=== PATIENT | male | born 1940 | race Caucasian/White ===

== ENCOUNTER 2017-11-22 08:13 | Inpatient (IN) | payer MEDICARE ==
[~2017-11-22] VITALS: Ht 175.3 cm; Wt 104.3 kg
[2017-11-22] VITALS (20 sets, daily range): BP systolic 132–179; BP diastolic 65–104
[~2017-11-22 08:13] MED LIST: ASPIRIN EC81 M1 PO; ATORVASTATIN CA80 MG PO; CALCIUM500 M1 PO; CELEBREX 200 M200 M1 PO; EFFIENT10 MG PO; FISH OIL 1,0001 EAC5 PO; GLUCOPHAGE500 MG PO; HYDROCHLOROTHIA25 M1 PO; IMDUR 30 MG TAB30 M1 PO; LISINOPRIL10 MG PO; LOVASTAT40 PO; MULTI VITAMIN1 EACH PO; VERAPAMIL ER240 MG PO
[2017-11-22 08:41] LABS: HEMATOCRIT 42.9 % (42.0-52.0); HEMOGLOBIN 14.8 gm/dL (14.0-18.0); MCH 33.2 pg (26.0-34.0); MCHC 34.4 g/dL (28.0-37.0); MCV 96.4 fL (80.0-100.0); MPV 8.5 fl. (7.2-11.1); RBC 4.45 mil/uL (4.50-6.00); RDW-CV 13.7 % (10.5-14.5); WBC 6.7 thou/uL (4.0-11.0)
[2017-11-22 08:48] LABS: ANION GAP 11 mmol/L (7-16); BUN 16 mg/dL (7-18); CALCIUM 8.9 mg/dL (8.5-10.1); CHLORIDE 104 mmol/L (98-107); CO2 28 mmol/L (21-32); CREATININE 0.9 mg/dL (0.6-1.3); GLUCOSE 129 mg/dL (70-99); POTASSIUM 4.1 mmol/L (3.5-5.1); SODIUM 143 mmol/L (136-145)
[2017-11-22 08:49] LABS: APTT 26.2 Seconds (25.0-31.3); INR 1.1; PROTIME 10.7 Seconds (9.20-11.50)
[2017-11-22 08:53] LABS: ALKALINE PHOSPHATASE 57 U/L (46-116); CHOLESTEROL 137 mg/dL (<200); HDL CHOLESTEROL 45 mg/dL (>40); LDL CHOLESTEROL 69 mg/dL (<100); SGOT 17 U/L (15-37); SGPT 41 U/L (30-65); TOTAL BILIRUBIN 0.9 mg/dL (<0.1-1.0); TRIGLYCERIDE 118 mg/dL (<150); VLDL 24 mg/dL (<40)
[2017-11-22 08:54] LABS: SERUM ASSESSMENT Clear
--- NOTE | 2017-11-22 17:07 | EKG ---
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
--- NOTE | 2017-11-22 17:09 | EKG ---
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
--- NOTE | 2017-11-22 17:21 | H ---
[address] [address] HISTORY AND PHYSICAL Name: BONIPENNIEFILIPPO JESUS Room: [address] IN M.R.#: [id number] Admission: 11/22/17 Attend Phys: Devante Kebede MD, Discharge: Date of : 36 Report #: [id number] THIS REPORT FOR: //name// CC: Osvaldo Kebede DATE OF SERVICE: 11/22/2017 The patient admitted through catheterization lab after coming through same day surgery on 11/22/2017. HISTORY OF PRESENT ILLNESS: The patient is a very pleasant 77-year-old male with a history of coronary artery disease status post prior percutaneous coronary intervention of the right coronary artery in 2012. Recently, he has noted chest discomfort and dyspnea with moderate exertion, the typical of his prior ischemic pain. Episodes are brief in duration and ____ with some cessation of activity. He has underlying hypertension, hypercholesterolemia and type 2 diabetes. MEDICATIONS: Include aspirin, atorvastatin, calcium, Celebrex, hydrochlorothiazide, Imdur, lisinopril, metformin, omeprazole, verapamil, and [place]-3 fatty acids. PAST MEDICAL HISTORY: Remarkable for coronary artery disease, hypertension and hyperlipoproteinemia. PAST SURGICAL HISTORY: Remarkable for prior elbow and foot surgery. FAMILY HISTORY: Remarkable for hypertension and heart disease in his mother and sister. SOCIAL HISTORY: The patient is a former smoker but no longer does. He is . REVIEW OF SYSTEMS: Remarkable for the following positives. He notes some dyspnea on exertion. He has had significant orthopedic problems, particularly affecting one ankle, which required ankle and foot surgery. CARDIOVASCULAR: He has noted recent chest discomfort and dyspnea on exertion. PHYSICAL EXAMINATION: GENERAL: Demonstrates a moderately overweight elderly male who is fit-appearing and in no acute distress. VITAL SIGNS: Blood pressure is 135/85, pulse rate is 68, respirations are 18 per minute. NECK: Jugular venous pressure is normal. Carotids are 1-2+. There is no scleral icterus [place] [address] HISTORY AND PHYSICAL Name: PENNIE PLATA ANN MARIE Room: [address] IN ..#: [id number] Admission: 11/22/17 Attend Phys: Devante Kebede MD, Discharge: Date of : 38 Report #: [id number] CHEST: Clear. CARDIAC: Reveals normal first and second heart sounds with a question of S4 gallop and soft early systolic murmur. ABDOMEN: Modestly obese. EXTREMITIES: Without edema with intact femoral, pedal and radial pulses. IMPRESSION: 1. Unstable angina. 2. Coronary artery disease status post prior stenting of the right coronary artery. 3. Hypertension. 4. Hypercholesterolemia. 5. Type 2 diabetes. 6. 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 7. Gastroesophageal reflux disease. RECOMMENDATIONS: Given the aforementioned clinical scenario, I would recommend cardiac catheterization to define current coronary anatomy and prospects for subsequent therapy. Procedure and risks have been discussed with the patient and family. We will plan to proceed on 11/22/2017, the date of dictation. <ELECTRONICALLY SIGNED> By: Devante Kebede MD, FACC 11/22/17 1721 1216 1246Jotoi Kebede MD, FACC /nt
--- NOTE | 2017-11-22 18:30 | NUR ---
RECEIVED PT FROM MANAGER OF CONSTRUCTION. PT COMPLETED PROCEDURE AT 1200. PT CAME TO FLOOR AROUND 1500. POST CATH VITALS ON FLOOR TAKEN FROM 1500 - 1815. RIGHT GROIN SITE CLEAN, DRY, INTACT, NO HEMATOMA. PT COMPLIANT WITH BED REST. PT CALLED OUT TO AMBULATE PER RN'S REQUEST AT COMPLETION OF BED REST. AT AMBULATION PT REPORTS SOME SORENESS. RIGHT GROIN SITE ASSESSED. NO BLEEDING, NO HEMATOMA. WILL CONTINUE TO MONITOR. IV FLUIDS INFUSING PER ORDERS. ASSESSMENT COMPLETE. PT EDUCATED TO HOLD METFORMIN UNTILL 11/24 AT NOON. PT EDUCATED ON CONTRAST AND METFORMIN. AT BEDSIDE.
--- NOTE | 2017-11-22 22:00 | NUR ---
RECIEVED REPORT AND ASSUMED CARE OF PATIENT AT 1930. ECONOMICS INSTRUCTOR IN PLACE TRACING SR. ASSESSMENT AND VITALS COMPLETED CHARTED, VSS. PATIENT A&OX4. DENIES PAIN, BUT DOES STATE HE HAS TENDERNESS IN RIGHT GROIN WHEN AMBULATING. RIGHT GROIN SITE DRESSING C/D/I, SITE SOFT WITH NO SIGNS OF HEMATOMA. PATIENT DENIES NEEDS AT THIS TIME. GOAL IS TO REST COMFORTABLY WITH NO COMPLICATIONS AT CATH SITE. CALL LIGHT WITHIN REACH.
[2017-11-23] VITALS: BP 136/72
[2017-11-23 04:01] VITALS: BP 134/52
[2017-11-23 04:51] LABS: HEMATOCRIT 38.9 % (42.0-52.0); HEMOGLOBIN 13.2 gm/dL (14.0-18.0); MCH 32.9 pg (26.0-34.0); MCV 96.9 fL (80.0-100.0); MPV 8.8 fl. (7.2-11.1); RBC 4.02 mil/uL (4.50-6.00); RDW-CV 13.4 % (10.5-14.5); WBC 7.4 thou/uL (4.0-11.0)
[2017-11-23 05:13] LABS: CALCIUM 8.6 mg/dL (8.5-10.1); CREATININE 0.9 mg/dL (0.6-1.3); POTASSIUM 4.5 mmol/L (3.5-5.1); TROPONIN-I LEVEL 0.11 ng/mL (<0.06)
--- NOTE | 2017-11-23 06:31 | NUR ---
PATIENT PROGRESSING TOWARDS GOALS: RIGHT GROIN CATH SITE DRESSING REMAINS C/D/I AND NO SIGNS OF HEMATOMA. PATIENT WANTING TO TAKE A SHOWER THIS AM, INFORMED PATIENT THAT HE COULD NOT SHOWER FOR 24 HOURS POST PROCEDURE. PATIENT VERBALIZES UNDERSTANDING. HOURLY ROUNDING OBSERVED. CALL LIGHT WITHIN REACH
--- NOTE | 2017-11-23 10:16 | NUR ---
ASSUMED PT CARE AT 0700 PT IS ALERT AND ORIENTED X 4 PT DENIES PAIN OR SOA PT SHOWS NO SIGNS OF BLEEDING OR EDEMA, PT IS UP AD HUY PT IS NOT A FALL RISK PT IS SR ON THE MONITOR, PT IS READY TO DISCAHRGE HOME PT GIVEN SCRIPTS AND SAMPLES OF MEDICATION, FOLLOW UP APPOINTMENT MADE FOR CARDIOLOGY, WILL CONTINUE TO MONITOR
[2017-11-23 10:32] VITALS: BP 126/68
[2017-11-23] MEDS ORDERED: BRILINTA90 MG PO (10:38)
--- NOTE | 2017-11-23 15:07 | CARD ---
[address] [address] CARDIAC CATH REPORT Name: PENNIE PLATA Room: [address] IN .R.#: [id number] Admission: 11/22/17 Attend Phys: Devante Kebede MD, Discharge: 11/23/17 Date of : 38 Report #: [id number] THIS REPORT FOR: //name// APPROVED REPORT Patient Details Patient Status: Out-Patient Room #: The patient is a 77 year-old male Event Personnel Devante Kebede [employer] Abril Hidalgo RN Blacksmith Apprentice Missy Moscoso RN Monitor Ebenezer Caballero, [facility] Scrub Procedures Performed Left Heart Catheterization, PTCA with Balloon Angioplasty, PTCA with Stenting; left heart catheterization and selective coronary angiography, Left Ventriculogram Indication Unstable angina Risk Factors Arterial Hypertension, Diabetes Previous Procedures/Diagnoses Previous PCI Procedure Narrative The patient was brought electively to the Cardiac Catheterization Laboratory and was prepped and draped in a sterile manner. The right femoral was infiltrated with 1% Lidocaine subcutaneous anesthesia. A 6Fr. [place] sheath was inserted into the Right Femoral Artery. Coronary angiography was performed using coronary diagnostic catheters. The right coronary system was accessed and visualized with a 6Fr. JR4 catheter. The left coronary system was accessed and visualized with a 6Fr. JL4 catheter. The left ventricle was accessed and visualized with a 6Fr. Straight Pigtail catheter. Left ventricular/Aortic Valve gradient assessed via catheter pullback. Pre-demployment femoral angiogram was performed . Closure device was deployed with a 6 Fr Angioseal. There was no hematoma. [place] [address] CARDIAC CATH REPORT Name: PENNIE PLATA Room: [address] IN .R.#: [id number] Admission: 11/22/17 Attend Phys: Devante Kebede MD, Discharge: 11/23/17 Date of : 38 Report #: [id number] Sedation start time: 9:00 Case end Time: Fluoro Time: 42.8 minutes Dose: DAP [id number] cGycm2 6916 mGy Contrast Type and Amount: Visipaque 715ml Diagnostic Cath Left Main 0% narrowing LAD 40% mid LAD narrowing with 50% distal LAD narrowing; there was 80% stenosis of the midportion of a small first diagonal branch Circumflex Prominent though nondominant vessel with 40% mid vessel narrowing and 90% distal narrowing at the bifurcation into a prominent and smaller posterolateral ventricular branches Right Coronary Dominant vessel with 30% mid vessel narrowing and 40% distal narrowing; there widely patent mid right coronary stents Left Ventriculography The left ventricle is normal in size with normal contractility. The left ventricular ejection fraction is estimated to be 60%. Left ventricular wall motion abnormalities are not present. There is no mitral insufficiency. Hemodynamics The aortic pressure is 149/79 mmHg with a mean of 91 mmHg. The left ventricular pressure is 140/8 end-diastolic mmHg with a mean of 8 mmHg. PCI Technique Lesion Anticoagulation was achieved with Angiomax. Percutaneous coronary intervention was performed on the distal circumflex artery segment. The lesion stenosis prior to intervention was 90% with HARRY 3 flow. A 6 Citizen Of [place] XB 3.5 Guide Catheter was used to engage the left ostium. A 014 prowater flex Interventional Guidewire was used to cross the lesion. BALLOON DILATION A Balloon catheter 2.75 x 12 trek was inserted and inflated up to 14atm for 15seconds. STENT DEPLOYMENT A drug-eluting stent 2.5x 14 integrity resolute, 2.5 x 18 integrity resolute was inserted and inflated up to 16atm for 15seconds. POST STENT DEPLOYMENT BALLOON DILATION A Balloon catheter 3.0 x 8 NC trek [place] [address] CARDIAC CATH REPORT Name: PENNIE PLATA Room: [address]#: [id number] Admission: 11/22/17 Attend Phys: Devante Kebede MD, Discharge: 11/23/17 Date of : 38 Report #: [id number] inflated up to 24-30atm for 15seconds. Final angiography reveals 20 % stenosis with HARRY 3 flow. COMMENTS The distal circumflex lesion was heavily calcified requiring significant lesion preparation PCI Technique Lesion 2 Percutaneous Coronary Intervention was performed on the small posterolateral branch of the distal circumflex. The lesion stenosis prior to intervention was 90% with HARRY 3 flow. Balloon Dilation A Balloon catheter 2.0 x 12mm trek was inserted and inflated up to 16atm for 15seconds. Final angiography reveals 50 % stenosis with HARRY 3 flow. Conclusion #1 significant coronary artery disease characterized by the following: A tandem 40 and 50% mid and distal LAD narrowing, B prominent though nondominant circumflex with 40% mid vessel narrowing and 90% distal stenosis involving the bifurcation into a very large posterolateral and small posterolateral branch C dominant right coronary artery with 30% mid vessel narrowing and 40% distal narrowing with widely patent mid right coronary stents #2 normal left ventricular systolic function, estimated ejection fraction being 60%, #3 normal left-sided hemodynamic study #4 successful percutaneous coronary intervention with deployment of sequential drug-eluting stents at the site of 90% distal circumflex stenosis with 20% residual narrowing following stent deployment #5 successful percutaneous coronary angioplasty at the site of 90% stenosis at the takeoff of a modest-sized posterolateral branch of the distal circumflex with 50% [place] [address] CARDIAC CATH REPORT Name: PENNIE PLATA Room: [address] IN M.R.#: [id number] Admission: 11/22/17 Attend Phys: Devante Kebede MD, Discharge: 11/23/17 Date of : 38 Report #: [id number] dilatation and HARRY-3 flow to the distal vessel. Recommendations Aggressive Medical Therapy Medications Administered Aspirin (any) Ticagrelor Diagnostic Cath Approved by: Devante Kebede MD Date/Time: 11/23/17 at 1503 hrs. <ELECTRONICALLY SIGNED> By: Devante Kebede MD, [facility] 11/23/17 1506 1506 1506Devante Kebede MD, [facility] /INF
--- NOTE | 2017-11-23 15:21 | EKG ---
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: : 1940 Requested By: Devante Kebede Order Number: [id number] Reading MD: Esa Gannon Measurements Intervals [place] Rate: 64 P: 24 NE: 132 QRS: -36 QRSD: 81 T: 22 QT: 400 QTc: 413 Interpretive Statements Sinus rhythm Inferior infarct, old Compared to ECG 11/22/2017 13:05:36 No significant changes Electronically Signed On 11-23-2017 15:21:20 EMG TECHNICIAN by Esa Gannon [email or web address] <ELECTRONICALLY SIGNED> By: Esa Gannon MD, [facility] 11/23/17 1521 0822 0822 Esa Gannon MD, [facility] /EPI
--- NOTE | 2017-11-27 10:48 | D ---
[address] [address] DISCHARGE SUMMARY Name: PENNIE PLATA Room: [address] IN M.R.#: [id number] Admission: 11/22/17 Attend Phys: Devante Kebede MD, Discharge: 11/23/17 Date of : 38 Report #: [id number] THIS REPORT FOR: //name// CC: Osvaldo Kebede DATE OF SERVICE: 11/23/2017 The patient is a delightful 77-year-old male with history of coronary artery disease status post remote stenting of the right coronary artery. Recently, he has noted marked dyspnea on exertion and some chest discomfort, typical prior ischemic syndrome. There is underlying hypertension, hyperlipoproteinemia, and mild type 2 diabetes. In this context, I performed cardiac catheterization on 11/22/2017, which revealed 90% stenosis of the prominent distal circumflex involving a bifurcation. There were tandem 30% and 50% mid to distal LAD narrowings with no significant circumflex narrowing noted. Left ventricular function was normal with an estimated ejection fraction of 60%. Given this data, I elected to proceed with percutaneous coronary intervention, deploying 2 drug-eluting stents in the distal circumflex with 20% residual narrowing and dilating a posterolateral branch that emanated from the stented region. The patient did well post-procedurally with no residual chest discomfort following the procedure. Troponin chivo inconsequentially to 0.11. Laboratory on 11/23, revealed sodium 143, potassium 4.5, BUN 12, creatinine 0.9, and glucose 106. Hemoglobin 11.2, white blood cell count 7400 with 153,000 platelets. Cholesterol 137, triglycerides 118, HDL 45, and LDL 69. There was good hemostasis at the right femoral site of catheterization. The patient was discharged to home on the following medications: Aspirin 81 mg daily, atorvastatin 40 mg at bedtime, Celebrex 200 mg as needed, no more than once daily; hydrochlorothiazide 25 mg daily, Imdur 30 mg daily, lisinopril 10 mg at bedtime, metformin 500 mg b.i.d. to be resumed on 11/24, ticagrelor or Brilinta 90 mg b.i.d. with 180 mg loading dose given periprocedurally, verapamil sustained release 240 mg daily. I will plan to see the patient in followup in 3 weeks. He is discharged to home in stable condition on the aforementioned medications. FINAL DISCHARGE DIAGNOSES: 1. Unstable angina. 2. [place] [address] DISCHARGE SUMMARY Name: PENNIE PLATA Room: [address]#: [id number] Admission: 11/22/17 Attend Phys: Devante Kebede MD, Discharge: 11/23/17 Date of : 38 Report #: [id number] 3. Status post stenting of the distal circumflex on 11/22/2017. 4. Hypertension. 5. Hyperlipoproteinemia. 6. Type 2 diabetes mellitus. 7. Degenerative joint disease. 8. Gastroesophageal reflux disease. PROCEDURES: 11/22/2017-left heart catheterization, left ventriculography, selective coronary arteriography, and percutaneous coronary intervention with deployment of two drug-eluting stents in the distal circumflex with angioplasty of a posterolateral branch. <ELECTRONICALLY SIGNED> By: Devante Kebede MD, FACC 11/27/17 1048 0914 0950Jotoi Kebede MD, [facility] /nt
== END 2017-11-23 11:15 | disposition home or self-care (01) | DRG 247 ==
LOC: M.CL 08:13 → M.TBA-CV 12:22 → M.2W 12:22
PROVIDERS: ADMIT Internal Medicine
PROC: 4A023N7 Measurement of Cardiac Sampling and Pressure, Left Heart, Percutaneous Approach (ICD-10-PCS; principal; 2017-11-22)
PROC: B2111ZZ Fluoroscopy of Multiple Coronary Arteries using Low Osmolar Contrast (ICD-10-PCS; principal; 2017-11-22)
PROC: B2151ZZ Fluoroscopy of Left Heart using Low Osmolar Contrast (ICD-10-PCS; principal; 2017-11-22)
PROC: 027035Z Dilation of Coronary Artery, One Artery with Two Drug-eluting Intraluminal Devices, Percutaneous Approach (ICD-10-PCS; principal; 2017-11-22)
DX: I25.110 Atherosclerotic heart disease of native coronary artery with unstable angina pectoris (principal); E11.9 Type 2 diabetes mellitus without complications; I10 Essential (primary) hypertension; E78.5 Hyperlipidemia, unspecified; E66.9 Obesity, unspecified; M19.90 Unspecified osteoarthritis, unspecified site; K21.9 Gastro-esophageal reflux disease without esophagitis; Z87.891 Personal history of nicotine dependence; Z68.33 Body mass index [BMI] 33.0-33.9, adult

== ENCOUNTER 2019-05-08 10:09 | Inpatient (IN) | payer MEDICARE ==
[~2019-05-08] VITALS: Ht 177.8 cm; Wt 96.2 kg
--- NOTE | ~2019-05-08 | H ---
[address] [address] HISTORY AND PHYSICAL Name: PENNIE PLATA Room: [address] IN M.R.#: [id number] Admission: 05/08/19 Attend Phys: Feliciano Lara MD Discharge: 05/10/19 Date of : 38 Report #: [id number] THIS REPORT FOR: //name// Please refer to the History and Physical performed in the physician's office. By: 1214Medical Records Staff LELAND /DONG
[~2019-05-08 10:09] MED LIST changes: +BRILINTA90 MG PO; +VERAPAMIL ER240 M1 PO; -VERAPAMIL ER240 MG PO
[2019-05-08 10:30] VITALS: BP 122/87
[2019-05-08 11:05] LABS: HEMATOCRIT 43.3 % (42.0-52.0); MCH 32.9 pg (26.0-34.0); MCHC 34.6 g/dL (28.0-37.0); MCV 95.1 fL (80.0-100.0); MPV 8.7 fl. (7.2-11.1); RBC 4.55 mil/uL (4.50-6.00); RDW-CV 13.1 % (10.5-14.5); WBC 6.2 thou/uL (4.0-11.0)
[2019-05-08 11:20] LABS: CALCIUM 8.8 mg/dL (8.5-10.1); CREATININE 1.1 mg/dL (0.6-1.3)
[2019-05-08 11:21] LABS: POTASSIUM 2.9 mmol/L (3.5-5.1)
[2019-05-08] MEDS ORDERED: PLAVIX 75 MG TA75 M1 PO (11:23)
[2019-05-08] MEDS ORDERED: ELIQUIS5 MG PO (11:23)
[2019-05-08] MEDS ORDERED: NORVASC5 MG PO (11:31)
[2019-05-08] MEDS ORDERED: COZAAR 25 MG TA25 M2 PO (11:56)
[2019-05-08 15:37] VITALS: BP 130/79
[2019-05-08 20:00] VITALS: BP 152/92
[2019-05-08 23:54] VITALS: BP 118/79
[2019-05-09 04:00] VITALS: BP 105/73
[2019-05-09 08:00] VITALS: BP 145/87
--- NOTE | 2019-05-09 10:39 | EKG ---
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: : 1940 Requested By: Devante Kebede Order Number: [id number] Eliot MD: Feliciano Lara Measurements Intervals [place] Rate: 83 P: RI: QRS: -39 QRSD: 82 T: 33 QT: 516 QTc: 607 Interpretive Statements Atrial fibrillation Inferior infarct, old Prolonged QT interval Compared to ECG 11/23/2017 08:22:42 Prolonged QT interval now present Sinus rhythm no longer present Myocardial infarct finding still present Electronically Signed On 05-09-2019 10:38:53 CDT by Feliciano Lara [email or web address] <ELECTRONICALLY SIGNED> By: Feliciano Lara MD, FACC 05/09/19 1038 0758 0758 Feliciano Lara MD, FAC /EPI
[2019-05-09 12:15] VITALS: BP 132/86
[2019-05-09 16:43] VITALS: BP 128/75
[2019-05-09 20:00] VITALS: BP 96/60
[2019-05-10] VITALS (18 sets, daily range): BP systolic 108–160; BP diastolic 69–98
[2019-05-10 05:28] LABS: CALCIUM 8.8 mg/dL (8.5-10.1); CREATININE 0.9 mg/dL (0.6-1.3); POTASSIUM 3.3 mmol/L (3.5-5.1)
--- NOTE | 2019-05-10 16:13 | 2DMMODE ---
[place] [address] 2 D/M-MODE ECHOCARDIOGRAM Name: BONIPENNIE ANN MARIE Room: [address] IN [facility]#: [id number] Admission: 05/08/19 Attend Phys: Feliciano Lara, Discharge: Date of : 36 Date of Service: 05/10/19 1613 Report #: [id number] THIS REPORT FOR: //name// APPROVED REPORT Study performed: 05/10/2019 09:50:05 EXAM: Comprehensive 2D, Doppler, and color-flow Echocardiogram Patient Location: In-Patient Room #: 200 Status: routine BSA: 2.13 HR: 100 bpm BP: 117/72 mmHg Rhythm: Atrial Fibrillation Other Information Study Quality: Good Indications Atrial Fibrillation 2D Dimensions IVSd: 13.68 (7-11mm) LVOT Diam: 20.74 (18-24mm) LVDd: 48.54 mm PWd: 14.07 (7-11mm) Ascending Ao: 32.87 (22-36mm) LVDs: 31.38 (25-40mm) Aortic Root: 36.76 mm Volumes Left Atrial Volume (Systole) LA ESV Index: 37.90 mL/m2 Aortic Valve AoV Peak Lyle.: 1.08 m/s AO Peak Gr.: 4.69 mmHg LVOT Max P.32 mmHg AO Mean Gr.: 2.12 mmHg LVOT Mean P.81 mmHg LVOT Max V: 1.04 m/s AO V2 VTI: 18.33 cm LVOT Mean V: 0.60 m/s MERLIN (VTI): 3.35 cm2 LVOT V1 VTI: 18.20 cm Mitral Valve MV Decel. Time: 172.58 ms MV PHT: 50.05 ms MVA (PHT): 4.40 cm2 [place] [address] 2 D/M-MODE ECHOCARDIOGRAM Name: PENNIE PLATA Room: [address] IN ..#: [id number] Admission: 05/08/19 Attend Phys: Feliciano Lara, Discharge: Date of : 36 Date of Service: 05/10/19 1613 Report #: [id number] TDI Lateral E' Lyle.: 0.11 m/s Pulmonary Valve PV Peak Lyle.: 0.93 m/s PV Peak Gr.: 3.43 mmHg Tricuspid Valve RAP Estimate: 5.00 mmHg TR Peak Gr.: 26.96 mmHg RVSP: 31.00 mmHg PA Pressure: 31.00 mmHg Left Ventricle The left ventricle is normal size. There is normal LV segmental wall motion. Mild concentric left ventricular hypertrophy. Left ventricular systolic function is normal. The left ventricular ejection fraction is within the normal range. LVEF is 55-60%. This study is not technically sufficient to allow evaluation of the LV diastolic function due to atrial fibrillation. Right Ventricle The right ventricle is normal size. The right ventricular systolic function is normal. Atria Left atrium is mildly dilated. The right atrium size is normal. Aortic Valve Mild aortic valve sclerosis. No aortic regurgitation is present. There is no aortic valvular stenosis. Mitral Valve The mitral valve is normal in structure. Mild mitral regurgitation. No evidence of mitral valve stenosis. Tricuspid Valve The tricuspid valve is normal in structure. Mild tricuspid regurgitation. Mild pulmonary hypertension. Pulmonic Valve The pulmonary valve is normal in structure. Trace pulmonic regurgitation. Great Vessels The aortic root is normal in size. IVC is [place] [address] 2 D/M-MODE ECHOCARDIOGRAM Name: BONIPENNIE Room: [address] IN [facility]#: [id number] Admission: 05/08/19 Attend Phys: Feliciano Lara, Discharge: Date of : 36 Date of Service: 05/10/19 1613 Report #: [id number] collapses >50% with inspiration. Pericardium There is no pericardial effusion. <Conclusion> The left ventricle is normal size. Mild concentric left ventricular hypertrophy. Left ventricular systolic function is normal. The left ventricular ejection fraction is within the normal range. LVEF is 55-60%. This study is not technically sufficient to allow evaluation of the LV diastolic function due to atrial fibrillation. The right ventricle is normal size. Left atrium is mildly dilated. Mild aortic valve sclerosis. No aortic regurgitation is present. There is no aortic valvular stenosis. The mitral valve is normal in structure. Mild mitral regurgitation. The tricuspid valve is normal in structure. Mild tricuspid regurgitation. Mild pulmonary hypertension. IVC is normal in size and collapses >50% with inspiration. There is no pericardial effusion. There is normal LV segmental wall motion. <ELECTRONICALLY SIGNED> By: Devante Kebede MD, FACC 05/10/19 1613 1613 161 Devante Kebede MD, FACC /INF
[2019-05-10] MEDS ORDERED: FLECAINIDE ACET50 M1 PO (18:37)
--- NOTE | 2019-05-11 09:13 | EKG ---
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: [facility] : 1940 Requested By: Devante Kebede Order Number: [id number] Elito MD: Feliciano Lara Measurements Intervals [place] Rate: 84 P: NE: QRS: -38 QRSD: 88 T: 55 QT: 389 QTc: 460 Interpretive Statements Atrial fibrillation Abnormal R-wave progression, late transition Inferior infarct, old Baseline wander in lead(s) V2 Compared to ECG 05/09/2019 07:58:38 Prolonged QT interval no longer present Myocardial infarct finding still present Electronically Signed On 05-11-2019 9:13:36 CDT by Feliciano Lara [email or web address] <ELECTRONICALLY SIGNED> By: Feliciano Lara MD, FAC 05/11/1913 5 5 Feliciano Lara MD, FAC /EPI
--- NOTE | 2019-05-12 09:52 | D ---
[address] [address] DISCHARGE SUMMARY Name: PENNIE PLATA Room: [address] IN M.R.#: [id number] Admission: 05/08/19 Attend Phys: Feliciano Lara MD Discharge: 05/10/19 Date of : 36 Report #: [id number] THIS REPORT FOR: //name// CC: Osvaldo Lara DATE OF SERVICE: 05/10/2019 FINAL DISCHARGE DIAGNOSES: 1. Persistent atrial fibrillation. 2. Coronary artery disease. 3. Hypertension. 4. Hyperlipidemia. 5. Type 2 diabetes. PROCEDURES: 05/10/2019 -- DC cardioversion with rhythm reverting from atrial fibrillation to sinus. The patient is a very pleasant 79-year-old male with a history of coronary artery disease with prior myocardial infarction and prior stenting on multiple occasions. There is underlying hypertension, hyperlipidemia and type 2 diabetes. Recently, he demonstrated atrial fibrillation with a rapid response and was placed on rate controlling agents and Eliquis. After several weeks of same, he continued to demonstrate atrial fibrillation. He was brought into the hospital for flecainide loading. He received 50 to 100 mg with 100 mg given in the morning prior to cardioversion which was undertaken on 05/10/2019 with 300 watt seconds administered x 1 with the rhythm reverting from atrial fibrillation to sinus mechanism. He remained in sinus rhythm and was stable through the remainder of the day. He was discharged to home on the evening of 05/10/2019 on the following medications: Flecainide 75 mg b.i.d., Eliquis 5 mg b.i.d., losartan 50 mg daily, Imdur 30 mg daily, hydrochlorothiazide 25 mg daily, Plavix 75 mg daily, atorvastatin 40 mg daily and Norvasc 5 mg daily. I will plan to see him in followup in approximately 3 weeks. He is discharged to home in stable condition on the aforementioned medications with followup as iterated above. <ELECTRONICALLY SIGNED> By: Devante Kebede MD, [facility] 05/12/19 0952 1732 1936Jotoi Kebede MD, FAC /nt
--- NOTE | 2019-05-12 09:53 | CARD ---
[address] [address] CARDIAC CATH REPORT Name: BONIPENNIEFILIPPO JESUS Room: [address] M.R.#: [id number] Admission: 05/08/19 Attend Phys: Feliciano Lara MD Discharge: 05/10/19 Date of : 38 Report #: [id number] THIS REPORT FOR: //name// CC: Osvaldo Lara DATE OF SERVICE: 05/10/2019 PROCEDURE: DC cardioversion. TECHNIQUE: The patient was brought to the catheterization area and was noted to be in atrial fibrillation with a moderate response. He received a prior antiarrhythmic therapy with flecainide 100 mg and was continued on Eliquis with the morning dose given. He was sedated with 3 mg of Versed and 75 mcg of fentanyl. With the patient having achieved satisfactory level of sedation, we proceeded with DC cardioversion. We administered 300 joules with patches located in the AP locations x 1 with rhythm reverting from atrial fibrillation to a sinus rhythm at a normal rate. The patient was hemodynamically and rhythmically stable. He gradually awakened from his state of conscious sedation and returned to normal neurologic function. He was then transferred in stable condition to the telemetry area from where he initially came. IMPRESSION: Successful DC cardioversion with rhythm reverting from atrial fibrillation to sinus at a normal rate with 300 joules administered x 1. <ELECTRONICALLY SIGNED> By: Devante Kebede MD, [facility] 05/12/19 0953 1207 [id number] Kebede MD, [facility] /nt
== END 2019-05-10 19:29 | disposition home or self-care (01) | DRG 309 ==
LOC: M.2W 10:09
PROVIDERS: Internal Medicine; ADMIT Internal Medicine Cardiovascular Disease
PROC: 5A2204Z Restoration of Cardiac Rhythm, Single (ICD-10-PCS; principal; 2019-05-10)
DX: I48.1 Persistent atrial fibrillation (principal); D68.69 Other thrombophilia; I25.10 Atherosclerotic heart disease of native coronary artery without angina pectoris; I10 Essential (primary) hypertension; E78.5 Hyperlipidemia, unspecified; E11.9 Type 2 diabetes mellitus without complications; E78.2 Mixed hyperlipidemia; E87.6 Hypokalemia; Z87.891 Personal history of nicotine dependence; Z88.8 Allergy status to other drugs, medicaments and biological substances; Z79.899 Other long term (current) drug therapy; Z95.5 Presence of coronary angioplasty implant and graft; I25.2 Old myocardial infarction

== ENCOUNTER 2020-11-04 10:41 | Observation (INO) | payer MEDICARE ==
[~2020-11-04] VITALS: Ht 177.8 cm; Wt 99.8 kg
[2020-11-04] VITALS (16 sets, daily range): BP systolic 133–168; BP diastolic 82–98
--- NOTE | ~2020-11-04 | H ---
[address] [address] HISTORY AND PHYSICAL Name: PENNIE PLATA ANN MARIE Room: [address] Reynaldo Aragon#: [id number] Admission: 11/04/20 Attend Phys: Devante Kebede MD, Discharge: 11/05/20 Date of : 38 Report #: [id number] THIS REPORT FOR: cc: Vini Renteria Jayme DO ~ [facility],Medical Records Staff Please refer to the History and Physical performed in the physician's office. By: [id number] Records Staff [facility] /DONG
[~2020-11-04 10:41] MED LIST changes: +COZAAR 25 MG TA25 M2 PO; +ELIQUIS5 MG PO; +FLECAINIDE ACET50 M1 PO; +NORVASC5 MG PO; +PLAVIX 75 MG TA75 M1 PO; +TAMBOCOR 100 M100 M1 PO
[2020-11-04 11:22] LABS: HEMATOCRIT 41.3 % (42.0-52.0); HEMOGLOBIN 14.2 gm/dL (14.0-18.0); MCH 32.9 pg (26.0-34.0); MCHC 34.3 g/dL (28.0-37.0); MCV 95.9 fL (80.0-100.0); MPV 7.7 fl. (7.2-11.1); RBC 4.3 mil/uL (4.50-6.00); RDW-CV 12.6 % (10.5-14.5); WBC 6.7 thou/uL (4.0-11.0)
[2020-11-04 11:32] LABS: ANION GAP 11 mmol/L (7-16); BUN 14 mg/dL (7-18); CALCIUM 9.2 mg/dL (8.5-10.1); CHLORIDE 97 mmol/L (98-107); CO2 26 mmol/L (21-32); CREATININE 0.8 mg/dL (0.6-1.3); GLUCOSE 114 mg/dL (70-99); POTASSIUM 3.3 mmol/L (3.5-5.1); SODIUM 134 mmol/L (136-145)
[2020-11-04 11:34] LABS: APTT 25.4 Seconds (25.0-31.3); PROTIME 10.8 Seconds (9.20-11.50)
[2020-11-04 11:37] LABS: ALBUMIN 3.7 g/dL (3.4-5.0); ALKALINE PHOSPHATASE 47 U/L (46-116); CHOLESTEROL 115 mg/dL (<200); HDL CHOLESTEROL 38 mg/dL (>40); LDL CHOLESTEROL 61 mg/dL (<100); SGOT 16 U/L (15-37); SGPT 33 U/L (30-65); TOTAL BILIRUBIN 0.7 mg/dL (<0.1-1.0); TOTAL PROTEIN 6.3 g/dL (6.4-8.2); TRIGLYCERIDE 83 mg/dL (<150); VLDL 17 mg/dL (<40)
[2020-11-04 11:38] LABS: SERUM ASSESSMENT Clear
[2020-11-04] MEDS ORDERED: ISOSORBIDE MONO30 M1 PO (11:54)
--- NOTE | 2020-11-04 16:00 | NUR ---
PT ARRIVED TO ROOM 231 VIA BED ACCOMPANIED BY . PT INSTRUCTED ON BED REST UNTIL 2100. CATH SITE CHECKED WITH BUSINESS CONTINUITY PLANNING DIRECTOR STAFF-NO BLEEDING OR HEMATOMA. NSR
--- NOTE | 2020-11-04 17:11 | NUR ---
PT TO UNIT THIS EVENING AFTER HEART CATH. PT COMPLIANT WITH BED REST ORDERS. AT BS. NSR ON MONITOR. IVF INFUSING
--- NOTE | 2020-11-04 17:14 | EKG ---
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1940 Requested By: Devante Kebede Order Number: [id number] Eliot MD: Devante Kebede Measurements Intervals [place] Rate: 73 P: 55 NE: 202 QRS: -36 QRSD: 86 T: 0 QT: 398 QTc: 439 Interpretive Statements Sinus rhythm Inferior infarct, old Compared to ECG 05/10/2019 06:06:31 Atrial fibrillation no longer present Myocardial infarct finding still present Electronically Signed On 11-04-2020 17:14:37 DITCH INSPECTOR by Devante Kebede [email or web address] <ELECTRONICALLY SIGNED> By: Devante Kebede MD, [facility] 11/04/20 1714 1150 1150 Devante Kebede MD, [facility] /EPI
--- NOTE | 2020-11-04 18:37 | EKG ---
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1940 Requested By: Devante Kebede Order Number: [id number] Reading MD: Devante Kebede Measurements Intervals [place] Rate: 78 P: 13 MS: 202 QRS: -48 QRSD: 90 T: -4 QT: 386 QTc: 440 Interpretive Statements Sinus rhythm Abnormal R-wave progression, late transition Inferior infarct, old Compared to ECG 11/04/2020 11:50:05 No significant changes Electronically Signed On 11-04-2020 18:37:45 CHAIN MENDER by Devante Kebede [email or web address] <ELECTRONICALLY SIGNED> By: Devante Kebede MD, [facility] 11/04/20 1837 1526 1526 Devante Kebede MD, [facility] /EPI
[2020-11-05 02:02] VITALS: BP 137/77
[2020-11-05 04:28] LABS: HEMATOCRIT 38.3 % (42.0-52.0); HEMOGLOBIN 13.2 gm/dL (14.0-18.0); MCH 33.1 pg (26.0-34.0); MCHC 34.6 g/dL (28.0-37.0); MCV 95.5 fL (80.0-100.0); MPV 7.5 fl. (7.2-11.1); RBC 4.01 mil/uL (4.50-6.00); RDW-CV 12.7 % (10.5-14.5); WBC 7.4 thou/uL (4.0-11.0)
[2020-11-05 05:34] VITALS: BP 140/86
[2020-11-05 05:37] LABS: ALBUMIN 3.3 g/dL (3.4-5.0); CALCIUM 8.9 mg/dL (8.5-10.1); CREATININE 0.7 mg/dL (0.6-1.3); POTASSIUM 3.4 mmol/L (3.5-5.1); TOTAL BILIRUBIN 0.7 mg/dL (<0.1-1.0); TOTAL PROTEIN 5.9 g/dL (6.4-8.2); TROPONIN-I LEVEL 0.48 ng/mL (<0.06)
[2020-11-05 08:00] VITALS: BP 1628/86
[2020-11-05 11:16] VITALS: BP 164/94
[2020-11-05 12:11] VITALS: BP 140/83
[2020-11-05 13:02] VITALS: BP 140/83
--- NOTE | 2020-11-05 14:05 | NUR ---
I ASSUMED CARE OF THE PATIENT AT 0700. HE IS ALERT AND ORIENTED X4 AND IS UP AD HUY. BED IS IN THE LOW LOCKED POSITION AND CALL LIGHT IS IN REACH. HOURLY ROUNDING IS COMPLETED AND PATIENT NEEDS ARE MET. PAIN IS DENIED. IS AT THE BEDSIDE READY TO DRIVE PATIENT HOME. HE IS FROM [place]. R GROIN SITE IS C/D/I AND WITH A BANDAID. DISCHARGE IS EXPLAINED AND FOLLOW UP APPOINTMENTS ARE UNDERSTOOD. WILL CONTINUE TO MONITOR.
--- NOTE | 2020-11-06 14:05 | EKG ---
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: : 1940 Requested By: Devante Kebede Order Number: [id number] Reading MD: Devante Kebede Measurements Intervals [place] Rate: 75 P: 47 NE: 181 QRS: -37 QRSD: 89 T: 35 QT: 390 QTc: 436 Interpretive Statements Sinus rhythm Inferior infarct, old Compared to ECG 11/04/2020 15:26:00 No significant changes Electronically Signed On 11-06-2020 14:05:49 CUTTER WOODWIND [employer]S by Devante Kebede [email or web address] <ELECTRONICALLY SIGNED> By: Devante Kebede MD, [facility] 11/06/20 1405 0833 0833 Devante Kebede MD, [facility] /EPI
--- NOTE | 2020-11-06 14:42 | CARD ---
[address] [address] CARDIAC CATH REPORT Name: PENNIE PLATA Room: [address] Reynaldo M.RJose#: [id number] Admission: 11/04/20 Attend Phys: Devante Kebede MD, Discharge: 11/05/20 Date of : 38 Report #: [id number] THIS REPORT FOR: cc: Vini Renteria Jayme DO ~ Devante Kebede MD [facility] APPROVED REPORT Study performed: 11/04/2020 12:10:10 Patient Details Patient Status: Out-Patient Room #: The patient is a 80 year-old male Event Personnel Devante Kebede Building Illuminating Engineer, Zoë Guerrero RN Oil Change Technician, Ebenezer Caballero Scrisauro, Amy Dow RTR Monitor Procedures Performed Art Access - R femoral artery, Left Heart Cath w/or w/o Coronaries LHC, YULIANA w/Atherectomy Single CIRC DESATH , Hemostasis w/ Angioseal Indication Unstable angina Risk Factors Obesity, Hypercholesterolemia, Hypertension, Diabetes Previous Procedures/Diagnoses Previous PCI Admission/Lab Medications/Medications given during procedure Angiomax IV 15 ml, Angiomax Drip IV 35 ml per hr, Angiomax IV 3 ml, Plavix PO 600 mg, Aspirin PO 162 mg Procedure Narrative The patient was brought electively to the Cardiac Catheterization Laboratory and was prepped and draped in a sterile manner. The right femoral was infiltrated with 2% Lidocaine subcutaneous anesthesia. A 6F Eckerman sheath was inserted into the right femoral artery. Coronary angiography was performed using coronary diagnostic catheters. The right coronary system was accessed [place] [address] CARDIAC CATH REPORT Name: PENNIE PLATA ANN MARIE Room: [address] Margo#: [id number] Admission: 11/04/20 Attend Phys: Devante Kebede MD, Discharge: 11/05/20 Date of : 38 Report #: [id number] a 6F JR4 catheter. The left coronary system was accessed and visualized with a 6F JL4 catheter. The left ventricle was accessed and visualized with a 6F Pigtail catheter. Left ventricular/Aortic Valve gradient assessed via catheter pullback. Left ventriculogram was performed in JAQUEZ projection. Pre-demployment femoral angiogram was performed . Closure device was deployed with a 6 Fr Angioseal STS. The patient tolerated the procedure well and there were no complications associated with the procedure. There was no hematoma. Intraoperative Conscious Sedation Sedation start time: 13:05 Case end Time: 14:59 Fentanyl 75 mcg Versed 3 mg Fluoro Time: 32.3 minutes Dose: DAP [id number] cGycm2 3580 mGy Contrast Type and Amount: Visipaque 530 ml Diagnostic Cath Left Main 0% narrowing LAD 30% mid with 50% distal narrowing Circumflex 40% mid vessel narrowing with 80% heavily calcified distal stenosis Right Coronary 30% mid vessel narrowing Left Ventriculography The left ventricle is normal in size with normal contractility. The left ventricular ejection fraction is estimated to be 65%. Left ventricular wall motion abnormalities are not present. There is no mitral insufficiency. Hemodynamics The aortic pressure is 137/75 mmHg with a mean of 118 mmHg. The left ventricular pressure is 137/1 mmHg with a mean of mmHg. The left ventricular end diastolic pressure is 6 mmHg. There was no gradient across the aortic valve upon pullback. PCI Technique Lesion Anticoagulation was achieved with Angiomax. Patient was preloaded with Angiomax IV 15 ml. Percutaneous coronary intervention was performed on the distal circumflex artery segment. The lesion stenosis prior to intervention was 80% with HARRY 3 flow. A 6FR LAUNCHER EBU 4.0 Guide Catheter was used to engage the lm ostium. A BMW 190cm Interventional Guidewire [place] [address] CARDIAC CATH REPORT Name: PENNIE PLATA Room: [address]#: [id number] Admission: 11/04/20 Attend Phys: Devante Kebede MD, Discharge: 11/05/20 Date of : 38 Report #: [id number] lesion. BALLOON DILATION A Balloon catheter NC Trek RX 2.75 X 8 was inserted and inflated up to 18.00atm for 14seconds. Additional Inflation: 18.00atm for 23seconds. Additional Inflation: 20.00atm for 19seconds. An AngioSculpt PTCA 2.5 x 10 scoring balloon catheter was inserted and inflated up to 16 tani for 25 seconds; 18 tani for 17 seconds; 20 tani for 15 seconds. A balloon catheter NC Trek RX 3.0 x 8 was inserted and inflated up to 17 tani for 18 seconds; 17 tani for 12 seconds. STENT DEPLOYMENT A drug-eluting stent Bert RX Stent 3.0X8mm was inserted and inflated up to 14.00atm for 11seconds. Additional Inflation: 16.00atm for 9seconds. The same balloon catheter NC Trek RX 3.0 x 8 was re-inserted and inflated up to 16 tani for 9 seconds. A 2nd drug eluting stent Bert RX Stent 2.75x8mm was inserted and inflated up to 14 tani for 11 seconds; 18 tani for 14 seconds. Final angiography reveals 25 % stenosis with HARRY 3 flow. Conclusion 1. Significant multivessel coronary artery characterized by the following: A 30% mid and 50% distal LAD narrowing B 40% mid and 80% heavily calcified distal circumflex stenosis C modest size dominant right coronary artery with 30% mid vessel narrowing 2. Normal left ventricular systolic function, estimated ejection fraction being 65% 3. Normal left-sided hemodynamic study 4. Successful PCI with deployment of sequential drug-eluting stents at the site of 80% heavily calcified distal circumflex stenosis with 25% residual narrowing and HARRY-3 flow to the distal vessel Recommendations Cardiac [place] [address] CARDIAC CATH REPORT Name: PENNIE PLATA Room: [address] Reynaldo Aragon#: [id number] Admission: 11/04/20 Attend Phys: Devante Kebede MD, Discharge: 11/05/20 Date of : 38 Report #: [id number] Aggressive Medical Therapy Medications Administered Aspirin (any) Clopidogrel Diagnostic Cath Approved by: Devante Kebede MD Date/Time: 11/06/2020 14:41:11 <ELECTRONICALLY SIGNED> By: Devante Kebede MD, FACC 11/06/20 1442 41 144Devante Kebede MD, FACC /INF
--- NOTE | 2020-11-06 15:24 | D ---
[address] [address] DISCHARGE SUMMARY Name: PENNIE PLATA Room: [address] [place]al[place] Aragon#: [id number] Admission: 11/04/20 Attend Phys: Devante Kebede MD, Discharge: 11/05/20 Date of : 38 Report #: [id number] THIS REPORT FOR: cc: Vini Renteria Jayme DO Devante Kebede MD [facility] DATE OF SERVICE: 11/05/2020 FINAL DISCHARGE DIAGNOSES: 1. Unstable angina. 2. Coronary artery disease. 3. Paroxysmal atrial fibrillation. 4. Hypertension. 5. Hyperlipidemia. 6. Type 2 diabetes. 7. Status post PCI to the distal circumflex with deployment of 2 drug-eluting stents. HOSPITAL COURSE: The patient is a very pleasant 80-year-old male with coronary artery disease in the context of diabetes, hypertension and hyperlipidemia. He has undergone prior PCIs. Recently, he has noted recrudescence of chest pain similar to his angina following a course of clinical instability. In that context, I performed cardiac catheterization on 11/04/2020 which revealed 80% distal circumflex stenosis involving the takeoff of a small sub-branch. There were no significant LAD or right coronary stenoses. I performed PCI, deploying 2 drug-eluting stents in the distal circumflex with a 20% residual narrowing, HARRY 3 flow of the distal vessel. The troponin chivo minimally to 0.48 post-procedurally. He had no recurrent chest discomfort. LABORATORY DATA: On 11/05 revealed sodium 136, potassium 3.4, BUN 9, creatinine 0.7, glucose 118. Hemoglobin 13.2, white blood cell count 7400 with 161,000 platelets. The patient ambulated without difficulty and there was good hemostasis at the right femoral site of catheterization. DISCHARGE MEDICATIONS: He was discharged to home on hydrochlorothiazide 25 mg daily, Imdur 30 mg b.i.d., metformin 500 mg b.i.d., Celebrex 200 mg daily, atorvastatin 40 mg at bedtime, clopidogrel 75 mg daily, apixaban 5 mg b.i.d. to be resumed on 11/06, amlodipine 5 mg daily, losartan 50 mg daily, flecainide [address] [place] [address] DISCHARGE SUMMARY Name: PENNIE PLATA [address] [id number] Admission: 11/04/20 Attend Phys: Devante Kebede MD, Discharge: 11/05/20 Date of : 38 Report #: [id number] The patient is scheduled to return to see me on 12/11/2020 at 11:20 at [facility] office. Therefore, he is discharged to home in stable condition on the aforementioned medications with followup as iterated above. <ELECTRONICALLY SIGNED> By: Devante Kebede MD, [facility] 11/06/20 1524 1023 1030John Laura Kebede MD, [facility] /nt
== END 2020-11-05 13:25 | disposition home or self-care (01) ==
LOC: M.CL 10:41 → M.TBA-CV 13:27 → M.2W 15:50
PROVIDERS: ADMIT Internal Medicine; ATTEND Internal Medicine
DX: I25.110 Atherosclerotic heart disease of native coronary artery with unstable angina pectoris (principal); I48.0 Paroxysmal atrial fibrillation; I10 Essential (primary) hypertension; E78.5 Hyperlipidemia, unspecified; E11.9 Type 2 diabetes mellitus without complications; Z79.82 Long term (current) use of aspirin; Z79.899 Other long term (current) drug therapy